=== PATIENT | female | born 1970 | race Caucasian/White ===

== ENCOUNTER → 2016-10-21 | Outpatient (CLI) | payer OTHER ==
[2016-10-21 11:28] LABS: CHOLESTEROL/HDL RATIO 2.8; THYROID STIMULATING HORMONE 3.85 uIu/ml (0.300-4.500)
== END | disposition home or self-care (01) ==
LOC: C.LABBC 07:48
PROVIDERS: ATTEND Internal Medicine
DX: E78.5 Hyperlipidemia, unspecified (principal); R53.83 Other fatigue

== ENCOUNTER → 2017-08-10 | Outpatient (CLI) | payer OTHER ==
[~2017-08-10] MED LIST: AMPH25CA PO; ASCA500 PO; CHOL1000 PO; CITA40TA12 PO; LEVO137T3 PO; MULT-506 PO; MULTCAP7 PO; OXYC1TAB3 PO
== END | disposition home or self-care (01) ==
LOC: C.PAPS 17:11
PROVIDERS: ATTEND Obstetrics & Gynecology
DX: Z01.419 Encounter for gynecological examination (general) (routine) without abnormal findings (principal)